=== PATIENT | male | born 1960 | race Caucasian/White ===

== ENCOUNTER → 2018-07-01 | Outpatient (CLI) | payer BC ==
[2018-07-01 12:16] LABS: HCT 42.3 % (39.0-53.0); HGB 14.7 gm/dL (13.0-17.5); MCH 31.2 pg (25.0-35.0); MCHC 34.6 g/dL (31.0-37.0); MCV 90.1 fL (80.0-100.0); Mean Platelet Volume 7.2; Platelet Count 257 k/uL (150-450); RDW 12.4 % (11.5-15.5); WBC 7.8 k/uL (3.8-10.6)
[2018-07-01 12:22] LABS: INR 1.1 (<1.2); Partial Thromboplastin Time 23.8 sec (22.0-30.0); Prothrombin Time 10.7 sec (9.0-12.0)
[2018-07-01 12:37] LABS: ALT 37 U/L (21-72); AST 30 U/L (17-59); Albumin 4.3 g/dL (3.5-5.0); Alkaline Phosphatase 65 U/L (38-126); Anion Gap 10 mmol/L; Blood Urea Nitrogen 19 mg/dL (9-20); Calcium 9.8 mg/dL (8.4-10.2); Carbon Dioxide 25 mmol/L (22-30); Chloride 106 mmol/L (98-107); Glucose 98 mg/dL (74-99); Potassium 4.6 mmol/L (3.5-5.1); Sodium 141 mmol/L (137-145); Total Bilirubin 0.3 mg/dL (0.2-1.3); Total Protein 7.6 g/dL (6.3-8.2)
[2018-07-01 13:29] LABS: Appearance,Urine Clear (Clear); Bilirubin,Urine Negative (Negative); Blood,Urine Negative (Negative); Color,Urine Yellow; Glucose,Urine (UA) Negative (Negative); Ketones,Urine Negative (Negative); Leukocyte Esterase,Urine Negative (Negative); Nitrite,Urine Negative (Negative); Protein,Urine Negative (Negative); Specific Gravity,Urine 1.021 (1.001-1.035); Urobilinogen,Urine <2.0 mg/dL (<2.0)
== END | disposition home or self-care (01) ==
LOC: LABPAT 11:31
PROVIDERS: ATTEND Orthopaedic Surgery
DX: Z01.812 Encounter for preprocedural laboratory examination (principal)
CPT/HCPCS: 36415; 80053; 81003; 85027; 85610; 85730; 87070

== ENCOUNTER 2018-07-11 13:33 | Inpatient (IN) | payer BC ==
[~2018-07-11 13:33] MED LIST: ACETAMINOPHEN TAB 500 MG TAB PO ONE; MELOXICAM 7.5 MG TAB PO ONE; TRANEXAMIC ACID 1,000 MG in SODIUM CHLORIDE 0.9% 50 ML IVPB ONE
[2018-07-11] MEDS ORDERED: ONDANSETRON 4 MG/2 ML VIAL IVP ONE (13:49)
[2018-07-11] MEDS ORDERED: DEXAMETHASONE SOD PHOSPHATE 10 MG/ML 1 ML VIAL IV ONE (13:49)
[2018-07-11] MEDS ORDERED: SCOPOLAMINE 1.5MG/72HR PATCH TRANSDERM ONE (13:49)
[2018-07-11] MEDS ORDERED: HYDROmorphone 1 MG/ML 1 ML SYRINGE IVP PRN ×4 (13:49→15:41)
[2018-07-11] MEDS ORDERED: LIDOCAINE 1% 20 ML VIAL (10MG/ML) FOR IV START INTRADERMA PRN (13:49)
[2018-07-11] MEDS: LACTATED RINGERS 1,000 ML IV SCH (14:42)
[2018-07-11] MEDS ORDERED: ONDANSETRON 4 MG/2 ML VIAL IVP PRN (15:41)
[2018-07-11] MEDS ORDERED: hydrOXYzine PAMOATE 25 MG CAP PO PRN (15:41)
[2018-07-11] MEDS ORDERED: NALOXONE 0.4 MG/ML 1 ML VIAL IV PRN (15:41)
[2018-07-11] MEDS ORDERED: MAGNESIUM HYDROXIDE 2,400 MG/10 ML CUP PO PRN (15:41)
[2018-07-11] MEDS ORDERED: DIAZEPAM 5 MG TAB PO PRN (15:41)
[2018-07-11] MEDS ORDERED: HYDROcodone/APAP 5-325MG 1 EACH TAB PO PRN (15:41)
[2018-07-11] MEDS: ceFAZolin IN SWFI 2 GM/20 ML SYRINGE IVP ONE ×2 (16:17→16:18)
[2018-07-11] MEDS ORDERED: ceFAZolin 3,000 MG in SODIUM CHLORIDE 0.9% IRRIGATIO 3,000 ML IRRIGATION ONE (16:42)
[2018-07-11] MEDS: ROPIVACAINE 246.25 MG, EPINEPHrine 0.5 MG, KETOROLAC 30 MG, cloNIDine HCL/PF 80 MCG, WA... MISCELLANE ONE ×10 (16:54→17:27)
[2018-07-11] MEDS ORDERED: LACTATED RINGERS 1,000 ML IV ONE (17:33)
--- NOTE | 2018-07-11 17:48 | P.OP ---
Date of Procedure: 07/11/18 Preoperative Diagnosis: Severe osteoarthritis right hip Postoperative Diagnosis: Severe osteoarthritis right hip Procedure(s) Performed: Right total hip arthroplasty with a direct anterior approach Implants: Valencia and nephew Polarstem size 6 standard Valencia [employer] Nephew R3, 3 hole acetabular shell, 54 mm [employer]hew reflection 6.5 mm cancellus screw, 20 mm 2 [employer]hew R3, XLPE 20 acetabular liner [employer] Nephew Oxinium femoral head 36 m, +8 All components were press-fit. The articulation is Oxinium on polyethylene. Anesthesia: spinal Surgeon: Oh Dhillon Rolloff Truck Driver #1: Tori Nguyen Estimated Blood Loss (ml): 200 (64 mL returned with Cell Saver) Pathology: other (Femoral head) Condition: stable Disposition: PACU Indications for Procedure: After failure of conservative treatment we discussed the surgical and nonsurgical treatment options at length. Patient wishes to proceed with a total hip arthroplasty with a direct anterior approach. Complications specific to this procedure were discussed at length, including but not limited to infection, leg length discrepancy, dislocation, and nerve injury. Patient is aware of all these complications and informed consent was obtained Operative Findings: The operative findings are consistent with severe osteoarthritis of the right hip Description of Procedure: Patient was seen and evaluated in the preoperative area, consent was reviewed, and the surgical site was marked with a skin marker. Patient was then brought to the operating room and given prophylactic antibiotics intravenously. 1 g of Tranexamic acid was also given. A spinal anesthetic was administered by the anesthesia department. The patient was then placed on the [place] table with the bony prominences well-padded. The hip area was then prepped and draped in usual sterile fashion. A universal timeout was then performed, which confirmed the patient's name, surgical site, ALLERGIES, and procedure being performed. Next the incision site was located at 1 cm distal and 1 cm lateral to the anterior superior iliac spine. The skin and subcutaneous tissues were sharply incised. Incision was carefully dissected down to the fascia overlying the tensor fascia xenia muscle. This fascia was then incised in line with the incision. Next, using blunt finger dissection, the tensor fascia xenia muscle was dissected off its investing fascia. The muscle was then carefully retracted laterally with a cobra retractor over the lateral neck of the femur. Next, the circumflex vessels were identified and cauterized using the AquaMantis device. The anterior hip capsule was then exposed. The capsule was then opened and an inverted T fashion. Cobra retractors were then placed intracapsularly. The proximal femur was then visualized. The femoral neck was then osteotomized appropriate level above the lesser trochanter. Small amount of traction was placed with the [place] table. A small wedge of bone was then removed from the remaining femoral head. Next, using a corkscrew femoral head was easily removed from the acetabulum. On gross visual inspection, the femoral head had complete loss of articular cartilage in multiple periarticular osteophytes. Attention was then turned to the acetabulum. the acetabulum was exposed and any remaining labrum was excised. Sequential reaming of the acetabulum was performed using fluoroscopic guidance. When the appropriate size was reached, a trial was then placed. The position and fit of the trial was checked with fluoroscopy. The trial was then removed. Then, using fluoroscopic guidance, the final implant was impacted at 20 of anteversion and 40 of abduction, and fully seated in the acetabulum. 2 screws were then placed in the acetabulum. Again fluoroscopy was used to check position of the screws. Next, the liner was then impacted, with a 20 elevated liner located in the anterior superior quadrant. Component locking was confirmed. Attention was then directed to the femur. With the aid of the [place] table, the femur was externally rotated to approximately 130, extended, and abducted under the opposite leg. A side hook was then placed under the proximal femur, and the side hook elevator was used to elevate the proximal femur. Retractors were then placed. A capsular release was performed, as well as a release of the conjoined tendon, which afforded excellent visualization of the proximal femur. Next, a box osteotome was used to lateralize the proximal femur. A hand i thermal cutter was then used to locate the femoral canal. Sequential broaching was then performed with appropriate size which afforded excellent fixation in the proximal femur. A trial was then placed with appropriate head and neck, and the hip was gently reduced with the aid of the [place] table. Fluoroscopy was then used to check position of the components, as well as to ensure equal leg lengths. The hip was then gently dislocated and the trials were then removed. Final implants were then impacted and the hip was again reduced. Final fluoroscopic x-rays confirmed that the components were in anatomic position, as well as equal leg lengths. The hip was also taken through range of motion, and found to be stable. The hip was then copiously irrigated with antibiotic solution with pulsatile lavage. The hip was then irrigated with Irrisept solution. The soft tissues were then injected with a ropivacaine solution, which consisted of 246.25 mg of ropivacaine, 0.5 mg of epinephrine, 30 mg of Toradol, 80 g of clonidine, and 48.45 mL of sterile water, for a total of 100 mL of fluid injected. A second dose of 1 g of Tranexamic acid was also given. the fascia was then closed with 2-0 strata fix suture. The subcutaneous tissue was closed with 3-0 Vicryl. The subcuticular tissue was closed with 3-0 strata fix suture. The skin was then closed with Dermabond glue and a sterile silver dressing. The patient was then transferred to the recovery room in stable condition. The drafter assistant GEORGE Block was required due to the complexity of surgery, and the need for skilled administrative assistant receptionist for positioning, draping, exposure, retraction, and closure of the wound.
[2018-07-11 18:43] VITALS: RESP 16
--- NOTE | 2018-07-11 18:46 | XR ---
EXAMINATION TYPE: XR Hip Limited RT DATE OF EXAM: 07/11/2018 COMPARISON: None HISTORY: Postop TECHNIQUE: Single view FINDINGS: There is a right hip prosthesis. Components are in anatomic position. IMPRESSION: No complicating process seen.
[2018-07-11 19:39] VITALS: BMI 33.2
[2018-07-11] MEDS: ASPIRIN 325 MG TAB PO SCH (20:28)
[2018-07-11] MEDS ORDERED: SENNOSIDES-DOCUSATE SODIUM 1 EACH TAB PO SCH (21:00)
[2018-07-11] MEDS: SODIUM CHLORIDE 0.9% 1,000 ML IV SCH (21:20)
[2018-07-11] MEDS: ceFAZolin IN SWFI 2 GM/20 ML SYRINGE IVP SCH (23:28)
[2018-07-12] MEDS: HYDROcodone/APAP 5-325MG 1 EACH TAB PO PRN ×2 (03:26→13:15)
[2018-07-12] MEDS: ceFAZolin IN SWFI 2 GM/20 ML SYRINGE IVP SCH (05:33)
[2018-07-12] MEDS: SODIUM CHLORIDE 0.9% 1,000 ML IV SCH (05:34)
[2018-07-12 07:10] LABS: Basophils % (A) 0 %; Eosinophils % (A) 0 %; HCT 38.8 % (39.0-53.0); HGB 12.7 gm/dL (13.0-17.5); Lymphocytes # (A) 1.1 k/uL (1.0-4.8); Lymphocytes % (A) 8 %; MCH 30.5 pg (25.0-35.0); MCHC 32.7 g/dL (31.0-37.0); MCV 93.4 fL (80.0-100.0); Mean Platelet Volume 8.7; Monocytes # (A) 0.8 k/uL (0-1.0); Monocytes % (A) 5 %; Neutrophils # (A) 12.5 k/uL (1.3-7.7); Neutrophils % (A) 86 %; Platelet Count 265 k/uL (150-450); RBC 4.16 m/uL (4.30-5.90); RDW 12.6 % (11.5-15.5); WBC 14.5 k/uL (3.8-10.6)
[2018-07-12 07:26] VITALS: BP 104/70; PULSE 64; TEMP 98
[2018-07-12] MEDS: ASPIRIN 325 MG TAB PO SCH (08:37)
--- NOTE | 2018-07-12 08:56 | FL ---
Fluoroscopy INDICATION: Pain FINDINGS: Fluoroscopy time: 55 seconds. Images obtained: 2. IMPRESSIONS: 1. Documentation of fluoroscopy.
[2018-07-12] MEDS ORDERED: MELOXICAM 7.5 MG TAB PO SCH (09:00)
--- NOTE | 2018-07-12 09:21 | P.DS ---
Providers Date of admission: 07/11/18 13:33 Expected date of discharge: 07/12/18 Attending physician: Oh Dhillon Consults: 07/11/18 15:41 Consult Physician Routine Consulting Provider: Pennie Alcazar Consult Reason/Comments: medical management Do you want consulting provider notified?: Yes 07/11/18 19:22 Consult Physician Routine Consulting Provider: Davis Hansen Consult Reason/Comments: medical management Do you want consulting provider notified?: Yes Primary care physician: Pennie Alcazar - Discharge Diagnosis(es) (1) Primary osteoarthritis of right hip Current Visit: Yes Status: Acute (2) Status post total hip replacement, right Current Visit: Yes Status: Acute Hospital Course: This is a 57-year-old male with known history of degenerative arthritis of the right hip. The patient presents for evaluation. After discussion and consideration patient elects to proceed with total hip arthroplasty. The patient is seen preoperatively by Dr. Dhillon and medically cleared for surgery by their primary care physician. Patient is admitted to [facility] on 07/11/2018 for total hip arthroplasty. The procedures performed without complication or sequelae. The patient is doing well postoperatively. Labs and vital signs are stable on day of discharge. On day of discharge patient's hip incision is healing well. There is minimal erythema. There is no drainage noted at this time. There is minimal soft tissue swelling to the hip and thigh. Patient has full foot and ankle motion without difficulty or pain. Neurovascular status to the right lower extremity is intact. Patient is discharged home in good condition. Please see med rec for accurate list of home medications. Plan - Discharge Summary Discharge Rx Participant: Yes New Discharge Prescriptions: New Aspirin 325 mg PO BID #60 tab HYDROcodone/APAP 5-325MG [[place] 5-325] 1 - 2 tab PO Q4-6H PRN #84 tab PRN Reason: Pain Sennosides [Senokot] 1 tab PO BID #60 tablet No Action Lisinopril-Hctz 20-25 mg [Zestoretic 20-25] 1 tab PO DAILY Fenofibrate 160 mg PO QAM Multivitamin [Men's Multi-Vitamin] 1 tab PO DAILY Ibuprofen [Advil] 200 mg PO Q6HR PRN PRN Reason: Pain Discharge Medication List Fenofibrate 160 mg PO QAM 07/01/18 [History] Ibuprofen [Advil] 200 mg PO Q6HR PRN 07/01/18 [History] Lisinopril-Hctz 20-25 mg [Zestoretic 20-25] 1 tab PO DAILY 07/01/18 [History] Multivitamin [Men's Multi-Vitamin] 1 tab PO DAILY 07/01/18 [History] Aspirin 325 mg PO BID #60 tab 07/12/18 [Rx] HYDROcodone/APAP 5-325MG [[place] 5-325] 1 - 2 tab PO Q4-6H PRN #84 tab 07/12/18 [ Rx] Sennosides [Senokot] 1 tab PO BID #60 tablet 07/12/18 [Rx] Follow up Appointment(s)/Referral(s): Oh Dhillon DO [Doctor of Osteopathic Medicine] - 2 Weeks Activity/Diet/Wound Care/Special Instructions: Weightbearing as tolerated with walker. Leave dressing intact. Dressing may be removed by home care nurse in 10 days. May shower with dressing on. Please follow-up with [facility] in 2 weeks and call with any questions or concerns, . Discharge Disposition: HOME WITH HOME HEALTH SERVICES
[2018-07-12] MEDS: LACTATED RINGERS 1,000 ML IV SCH (10:48)
--- NOTE | 2018-07-13 00:23 | CONS ---
CONSULTATION DATE OF SERVICE: 07/12/2018. REASON FOR CONSULTATION: Medical management requested by Dr. Dhillon. CONSULTATION: This is a pleasant 57-year-old patient of Dr. Pennie Alcazar who underwent a right total hip arthroplasty. I saw this patient this morning. Post procedure patient is doing well. Pain is controlled. Did work with therapy, using a walker to get about. No nausea, vomiting. No dizziness. No lightheadedness. No chest pain. Did tolerate his breakfast. Chronic stable medical conditions include hypertension, hyperlipidemia, and arthritis in other joints. REVIEW OF SYSTEMS: CONSTITUTIONAL: None. HEENT: None. RESPIRATORY: None. CARDIOVASCULAR: None. GASTROINTESTINAL: None. MUSCULOSKELETAL: Arthritic pain in different joints. DERMATOLOGICAL: None. HEMATOLOGIC: None. LYMPHATICS: None. PSYCHIATRY: None. NEUROLOGIC: None. PAST MEDICAL HISTORY: Hypertension, hyperlipidemia, osteoarthritis. PAST SURGICAL HISTORY: Colonoscopy. SOCIAL HISTORY: Does not smoke. Alcohol occasionally. . Currently unemployed. Used to work at a grocery store. FAMILY HISTORY: Kidney cancer. HOME MEDICATIONS: Multivitamin 1 tablet p.o. daily, Zestoretic 20/25 one tablet p.o. daily, Tricor 160 mg p.o. daily. ALLERGIES: None. PHYSICAL EXAMINATION: Temperature 98, pulse 64, respirations 18, blood pressure 104/70, pulse ox 98% on room air. GENERAL APPEARANCE: Well built. BMI 33.2. Sitting at the edge of the bed, comfortable. EYES: Pupils equal. Conjunctivae normal. HEENT: External ears and nose normal. Oral cavity normal. Oral cavity normal. NECK: JVD not raised. Mass not palpable. Respiratory effort normal. LUNGS: Clear. CARDIOVASCULAR: 1st and 2nd sounds normal. No edema. ABDOMEN: Soft, nontender. Liver and spleen not palpable. LYMPHATICS: No lymph node palpable in the neck or axillae. PSYCHIATRY: Alert and oriented x3. Mood and affect normal. NEUROLOGIC: Pupils equal. Cranial nerves grossly intact. Power and sensation grossly intact. INVESTIGATIONS: White count 14.5, hemoglobin 12.7. ASSESSMENT: 1. Right total hip arthroplasty. 2. Hyperlipidemia. 3. Essential hypertension. 4. Primary osteoarthritis. 5. Leukocytosis, probably reactive from surgery. Incision healing well per Orthopedics. 6. Obesity, BMI 33.2. PLAN: Home medications to continue. The patient has been put on aspirin for DVT prophylaxis per Dr. Dhillon. Patient control is in place. Care was discussed with the patient. Questions were answered. The patient should follow up with family doctor upon discharge. Thank you, Dr. Dhillon. JED / SANDRA: [id number] /
== END 2018-07-12 15:47 | disposition home health service (06) | DRG 470 ==
LOC: 2ORMAIN 13:33 → 4SSUR 18:22
PROVIDERS: ADMIT Orthopaedic Surgery; ATTEND Orthopaedic Surgery
PROC: 30233N0 Transfusion of Autologous Red Blood Cells into Peripheral Vein, Percutaneous Approach (ICD-10-PCS; 2018-07-11)
PROC: 0SR906A Replacement of Right Hip Joint with Oxidized Zirconium on Polyethylene Synthetic Substitute, Uncemented, Open Approach (ICD-10-PCS; principal; 2018-07-11 15:45)
DX: M15.9 Polyosteoarthritis, unspecified (principal); D72.829 Elevated white blood cell count, unspecified; E66.9 Obesity, unspecified; E78.5 Hyperlipidemia, unspecified; I10 Essential (primary) hypertension; F32.9 Major depressive disorder, single episode, unspecified; Z79.899 Other long term (current) drug therapy; Z68.33 Body mass index [BMI] 33.0-33.9, adult; Z80.51 Family history of malignant neoplasm of kidney
CPT/HCPCS: 73501; 85025; 86850; 86891; 86900; 86901; 88300